=== PATIENT | female | born 1935 | race Caucasian/White ===

== ENCOUNTER 2017-07-20 16:07 | Observation (INO) | payer MEDICARE, OTHER ==
[~2017-07-20] VITALS: Ht 167.6 cm; Wt 69.8 kg
[~2017-07-20 16:07] MED LIST: DOCU100 PO; LIDO700A20 TOP; METF850 PO; PANT20 PO; Robaxin500 MG PO
[2017-07-20 17:17] LABS: BASOPHILS ABSOLUTE AUTO 0.02 K/mm3 (0.00-0.23); BASOPHILS PERCENT AUTO 0 % (0-2); EOSINOPHILS ABSOLUTE AUTO 0.12 K/mm3 (0.00-0.68); EOSINOPHILS PERCENT AUTO 2 % (0-6); Hematocrit 40.2 % (33.0-51.0); Hemoglobin 14.2 g/dL (11.5-16.0); IMMATURE GRAN ABSOLUTE AUTO 0.01 K/mm3 (0.00-0.10); IMMATURE GRAN PERCENT AUTO 0 % (0-1); LYMPHOCYTES PERCENT AUTO 43 % (21-46); MONOCYTES ABSOLUTE AUTO 0.87 K/mm3 (0.16-1.47); MONOCYTES PERCENT AUTO 12 % (4-13); Mean Corpuscular HGB 32.1 pg (26.0-34.0); Mean Corpuscular HGB Conc 35.3 g/dL (31.5-36.5); Mean Corpuscular Volume 91 fL (80-100); Mean Platelet Volume 10.5 fL (9.1-12.4); NEUTROPHILS ABSOLUTE AUTO 3.22 K/mm3 (1.96-9.15); NEUTROPHILS PERCENT AUTO 43 % (41-73); Platelet Count 191 K/mm3 (150-400); RDW Coefficient Variation 12.2 % (11.7-14.2); RDW Standard Deviation 40.7 fL (35.1-46.3); Red Blood Cell Count 4.43 M/mm3 (3.80-5.20); White Blood Cell Count 7.44 K/mm3 (4.00-11.30)
[2017-07-20 17:32] LABS: Alanine Aminotransfer (ALT/SGP 19 U/L (12-78); Albumin, Blood 3.6 g/dL (3.4-5.0); Albumin/Globulin Ratio 1.2 (0.8-1.8); Alk Phos 58 U/L (50-136); Anion Gap 8 mmol/L (6-16); Aspartate Aminotrans (AST/SGOT 22 U/L (12-37); Bilirubin, Total 0.4 mg/dL (0.1-1.0); Blood Urea Nitrogen 21 mg/dL (8-24); Bun/Creatinine Ratio 25.1 (12.0-20.0); CO2, Blood 29 mmol/L (21-32); Calcium, Blood 8.5 mg/dL (8.5-10.1); Chloride, Blood 91 mmol/L (98-108); Creatinine, Blood 0.84 mg/dL (0.40-1.00); Globulin, Blood 3.1 g/dL (2.2-4.0); Glomerular Filtration Rate >60 (60-); Glucose, Blood 96 mg/dL (70-99); Potassium, Blood 3.3 mmol/L (3.5-5.5); Sodium, Blood 128 mmol/L (136-145); Total Protein, Blood 6.7 g/dL (6.4-8.2)
[2017-07-20] MEDS ORDERED: TRAM50 PO (18:25)
[2017-07-21 04:46] LABS: BASOPHILS ABSOLUTE AUTO 0.03 K/mm3 (0.00-0.23); BASOPHILS PERCENT AUTO 1 % (0-2); EOSINOPHILS ABSOLUTE AUTO 0.14 K/mm3 (0.00-0.68); EOSINOPHILS PERCENT AUTO 2 % (0-6); Hematocrit 35.9 % (33.0-51.0); Hemoglobin 12.3 g/dL (11.5-16.0); IMMATURE GRAN ABSOLUTE AUTO 0.02 K/mm3 (0.00-0.10); IMMATURE GRAN PERCENT AUTO 0 % (0-1); LYMPHOCYTES PERCENT AUTO 40 % (21-46); MONOCYTES ABSOLUTE AUTO 0.71 K/mm3 (0.16-1.47); MONOCYTES PERCENT AUTO 11 % (4-13); Mean Corpuscular HGB 31.2 pg (26.0-34.0); Mean Corpuscular HGB Conc 34.3 g/dL (31.5-36.5); Mean Corpuscular Volume 91 fL (80-100); Mean Platelet Volume 10.4 fL (9.1-12.4); NEUTROPHILS ABSOLUTE AUTO 2.91 K/mm3 (1.96-9.15); NEUTROPHILS PERCENT AUTO 46 % (41-73); Platelet Count 213 K/mm3 (150-400); Red Blood Cell Count 3.94 M/mm3 (3.80-5.20); White Blood Cell Count 6.31 K/mm3 (4.00-11.30)
[2017-07-21 05:12] LABS: Alanine Aminotransfer (ALT/SGP 13 U/L (12-78); Albumin, Blood 3.2 g/dL (3.4-5.0); Albumin/Globulin Ratio 1.1 (0.8-1.8); Alk Phos 48 U/L (50-136); Aspartate Aminotrans (AST/SGOT 15 U/L (12-37); Bilirubin, Total 0.3 mg/dL (0.1-1.0); Blood Urea Nitrogen 16 mg/dL (8-24); Bun/Creatinine Ratio 18.8 (12.0-20.0); CO2, Blood 31 mmol/L (21-32); Calcium, Blood 8.4 mg/dL (8.5-10.1); Chloride, Blood 101 mmol/L (98-108); Creatinine, Blood 0.85 mg/dL (0.40-1.00); Globulin, Blood 2.9 g/dL (2.2-4.0); Glomerular Filtration Rate >60 (60-); Glucose, Blood 99 mg/dL (70-99); Potassium, Blood 3.6 mmol/L (3.5-5.5); Total Protein, Blood 6.1 g/dL (6.4-8.2)
[2017-07-21 05:24] LABS: Anion Gap 7 mmol/L (6-16)
[2017-07-21 05:42] LABS: Sodium, Blood 139 mmol/L (136-145)
[2017-07-22] MEDS ORDERED: HYDR1TAB94 PO (12:24)
[2018-02-22] MEDS ORDERED: HYDCHL25 PO (03:43)
[2018-02-22] MEDS ORDERED: POTCHL20ER PO (03:43)
[2018-02-22] MEDS ORDERED: ROSU5 PO (03:43)
[2018-02-23] MEDS ORDERED: LIDOCAINE1 EACH TOP (10:08)
[2018-02-23] MEDS ORDERED: GAVILAX17 GM PO (10:10)
[2018-02-23] MEDS ORDERED: ONDA4ODT MM (10:11)
== END 2017-07-22 13:05 | disposition home or self-care (01) ==
LOC: ER 16:07 → SURS 16:08 → ER 17:40 → SURS 18:54
PROVIDERS: Emergency Medicine; Internal Medicine; Surgery
PROC: BF13YZZ Fluoroscopy of Gallbladder and Bile Ducts using Other Contrast (ICD-10-PCS; principal; 2017-07-21 13:25)
PROC: 0FT44ZZ Resection of Gallbladder, Percutaneous Endoscopic Approach (ICD-10-PCS; principal; 2017-07-21 13:25)
DX: K80.12 Calculus of gallbladder with acute and chronic cholecystitis without obstruction (principal); E11.9 Type 2 diabetes mellitus without complications; I10 Essential (primary) hypertension; E87.1 Hypo-osmolality and hyponatremia; M19.90 Unspecified osteoarthritis, unspecified site; Z90.49 Acquired absence of other specified parts of digestive tract; Z79.891 Long term (current) use of opiate analgesic; Z79.899 Other long term (current) drug therapy
CPT/HCPCS: 36415; 74300; 76705; 80053; 82947; 83690; 85025; 88304; 93005; 93010; 96366; 96372; 96374; 96375; 99285; C1729; C9113; G0378; J0295; J1100; J1650; J1885; J2405; J2710; J3010; J3480; J7030; J7120

== ENCOUNTER 2017-07-29 10:44 | Emergency (ER) | payer MEDICARE, OTHER ==
[~2017-07-29] VITALS: Ht 157.5 cm; Wt 72.6 kg
[~2017-07-29 10:44] MED LIST changes: +HYDR1TAB94 PO; +TRAM50 PO
[2017-07-29 11:12] LABS: BASOPHILS ABSOLUTE AUTO 0.02 K/mm3 (0.00-0.23); BASOPHILS PERCENT AUTO 0 % (0-2); EOSINOPHILS ABSOLUTE AUTO 0.07 K/mm3 (0.00-0.68); EOSINOPHILS PERCENT AUTO 1 % (0-6); Hematocrit 35.3 % (33.0-51.0); IMMATURE GRAN ABSOLUTE AUTO 0.03 K/mm3 (0.00-0.10); IMMATURE GRAN PERCENT AUTO 0 % (0-1); LYMPHOCYTES ABSOLUTE AUTO 3.03 K/mm3 (0.84-5.20); LYMPHOCYTES PERCENT AUTO 29 % (21-46); MONOCYTES ABSOLUTE AUTO 1.13 K/mm3 (0.16-1.47); MONOCYTES PERCENT AUTO 11 % (4-13); Mean Corpuscular HGB 31.2 pg (26.0-34.0); Mean Corpuscular Volume 92 fL (80-100); Mean Platelet Volume 9.9 fL (9.1-12.4); NEUTROPHILS ABSOLUTE AUTO 6.04 K/mm3 (1.96-9.15); NEUTROPHILS PERCENT AUTO 59 % (41-73); Platelet Count 240 K/mm3 (150-400); RDW Coefficient Variation 12.2 % (11.7-14.2); RDW Standard Deviation 41.2 fL (35.1-46.3); Red Blood Cell Count 3.85 M/mm3 (3.80-5.20); White Blood Cell Count 10.32 K/mm3 (4.00-11.30)
[2017-07-29 11:28] LABS: Alanine Aminotransfer (ALT/SGP 22 U/L (12-78); Albumin, Blood 3.2 g/dL (3.4-5.0); Albumin/Globulin Ratio 0.9 (0.8-1.8); Alk Phos 61 U/L (50-136); Anion Gap 7 mmol/L (6-16); Aspartate Aminotrans (AST/SGOT 14 U/L (12-37); Bilirubin, Total 0.5 mg/dL (0.1-1.0); Blood Urea Nitrogen 22 mg/dL (8-24); Bun/Creatinine Ratio 23.2 (12.0-20.0); CO2, Blood 29 mmol/L (21-32); Calcium, Blood 8.3 mg/dL (8.5-10.1); Chloride, Blood 95 mmol/L (98-108); Creatinine, Blood 0.95 mg/dL (0.40-1.00); Globulin, Blood 3.6 g/dL (2.2-4.0); Glomerular Filtration Rate >60 (60-); Glucose, Blood 146 mg/dL (70-99); Sodium, Blood 131 mmol/L (136-145); Total Protein, Blood 6.8 g/dL (6.4-8.2)
[2017-07-29] MEDS ORDERED: Percocet 5-3251 EACH PO (13:34)
[2018-02-22] MEDS ORDERED: POTCHL20ER PO (03:43)
[2018-02-22] MEDS ORDERED: HYDCHL25 PO (03:43)
[2018-02-22] MEDS ORDERED: ROSU5 PO (03:43)
[2018-02-23] MEDS ORDERED: LIDOCAINE1 EACH TOP (10:08)
[2018-02-23] MEDS ORDERED: GAVILAX17 GM PO (10:10)
[2018-02-23] MEDS ORDERED: ONDA4ODT MM (10:11)
== END 2017-07-29 14:20 | disposition home or self-care (01) ==
LOC: ER 10:44
PROVIDERS: Physician Assistant
DX: R10.11 Right upper quadrant pain (principal); R10.13 Epigastric pain; Z79.84 Long term (current) use of oral hypoglycemic drugs; Z79.899 Other long term (current) drug therapy; Z90.49 Acquired absence of other specified parts of digestive tract
CPT/HCPCS: 36415; 73030; 74176; 80053; 83690; 85025; 96372; 96374; 96375; 99284; J1170; J2405

== ENCOUNTER 2019-03-08 16:57 | Inpatient (IN) | payer MEDICARE, OTHER ==
[~2019-03-08] VITALS: Ht 157.5 cm; Wt 74.9 kg
[~2019-03-08 16:57] MED LIST changes: +GAVILAX17 GM PO; +HYDCHL25 PO; +LIDOCAINE1 EACH TOP; +ONDA4ODT MM; +POTCHL20ER PO; +Percocet 5-3251 EACH PO; +ROSU5 PO
--- NOTE | 2019-03-12 10:00 | NUR ---
History, Chart, Medications and Allergies reviewed before start of procedure.Lungs clear T/O to Auscultation. Patient confirms NPO status and agrees with scheduled surgery. Pre-Op teaching done. Pt verbalizes understanding.
--- NOTE | 2019-03-12 15:26 | NUR ---
PT ARRIVED TO THE ROOM AT APPROXIMATELY 1450. PT QUITE DROWSY UPON ARRIVAL TO THE ROOM. SHE WAKES UP TO ANSWER QUESTIONS. SEROUS DRAINAGE NOTED FROM GUIDE SITE ON THE UPPER HIP AREA, DRESSING CHANGED; GAUZE APPLIED AND COVERED WITH COMPRESSION TAPE. WILL CONTINUE TO MONITOR DRAINAGE. VSS. WILL CONTINUE TO MONITOR.
--- NOTE | 2019-03-12 18:52 | NUR ---
BLEEDING FROM GUIDE SITE R HIP/ABD FOLLOW UP ASSESSMENT OF R HIP/ABD GUIDE SITE SHOWED THAT PT WAS STILL HAVING BLEEDING FROM THAT SITE AND THE DRESSING WAS SATURATED. DR. GASTELUM NOTIFIED OF BLEEDING. PRESSURE HELD ON WOUND SITE. BLEEDING APPEARED TO SLOW AFTER PRESSURE WAS APPLIED. DRESSING WAS CHANGED, GAUZE, ABD PAD, AND COMPRESSION TAPE APPLIED. WILL NOTIFY RN TO HOLD TORADOL AND ASPIRIN TONIGHT AND TOMORROW MORNING PER DR. GASTELUM AND TO NOTIFY DR. CASTRO.
--- NOTE | 2019-03-12 19:23 | NUR ---
SHIFT SUMMARY PAIN HAS BEEN MANAGED WITH TYLENOL AND TORADOL. SHE IS TOLERATING PO WELL. FRANCOIS RN NOTIFIED OF BLEEDING FROM GUIDE SITE (SEE PREVIOUS NOTES). VSS. REPORT GIVEN TO FRANCOIS ROY.
[2019-03-13 05:15] LABS: BASOPHILS ABSOLUTE AUTO 0.02 K/mm3 (0.00-0.23); BASOPHILS PERCENT AUTO 0 % (0-2); EOSINOPHILS PERCENT AUTO 0 % (0-6); Hematocrit 30.6 % (33.0-51.0); Hemoglobin 10.4 g/dL (11.5-16.0); IMMATURE GRAN ABSOLUTE AUTO 0.06 K/mm3 (0.00-0.10); IMMATURE GRAN PERCENT AUTO 0 % (0-1); LYMPHOCYTES ABSOLUTE AUTO 2.15 K/mm3 (0.84-5.20); LYMPHOCYTES PERCENT AUTO 16 % (21-46); MONOCYTES PERCENT AUTO 12 % (4-13); Mean Corpuscular HGB 32.3 pg (26.0-34.0); Mean Corpuscular Volume 95 fL (80-100); Mean Platelet Volume 10.6 fL (9.1-12.4); NEUTROPHILS ABSOLUTE AUTO 9.89 K/mm3 (1.96-9.15); NEUTROPHILS PERCENT AUTO 72 % (41-73); Platelet Count 180 K/mm3 (150-400); RDW Coefficient Variation 11.5 % (11.7-14.2); RDW Standard Deviation 39.8 fL (35.1-46.3); Red Blood Cell Count 3.22 M/mm3 (3.80-5.20); White Blood Cell Count 13.72 K/mm3 (4.00-11.30)
[2019-03-13 05:31] LABS: Anion Gap 8 mmol/L (6-16); Blood Urea Nitrogen 27 mg/dL (8-24); Bun/Creatinine Ratio 31.1 (12.0-20.0); CO2, Blood 25 mmol/L (21-32); Calcium, Blood 8.2 mg/dL (8.5-10.1); Chloride, Blood 103 mmol/L (98-108); Creatinine, Blood 0.87 mg/dL (0.40-1.00); Glomerular Filtration Rate >60 (60-); Glucose, Blood 259 mg/dL (70-99); Magnesium, Blood 1.5 mg/dL (1.6-2.4); Potassium, Blood 4.6 mmol/L (3.5-5.5); Sodium, Blood 136 mmol/L (136-145)
--- NOTE | 2019-03-13 07:23 | NUR ---
SUMMARY POD #1 RIGHT LYNDSEY. AUQACEL DRSG TO HIP REMAINS DRY & INTACT. CIRC WNL. PRESSURE DRSG TO ABD REMAINED DRY UNTIL THIS AM, DRSG BECAME SATURATED QUICKLY, PRESSURE DRSG WAS CHANGED, WOUND SITE CLEANED. NO BRUISING NOTED TO ABD, THIGH, OR LOWER BACK. ABD IS SLIGHTLY DISTENDED, NO CHANGE FROM ASSESSMENT. TORADOL & ASPIRIN HELD PER MD ORDER. PAIN MANAGED WITH TYLENOL AND 1 OXYCODONE. PT IS TOLERATING PO INTAKE. VOIDING WNL. 1 ASSIST TO THE BATHROOM USING FWW/GAIT BELT. SLIGHT CONFUSION NOTED. REPORTED TO BE FORGETFUL @ BASELINE. BED ALARM FOR SAFETY. REPORT GIVEN TO DAY RN, PRESSURE DRSG CHECKED AT BEDSIDE DURING REPORT. CALL LIGHT IN REACH.
--- NOTE | 2019-03-13 10:15 | NUR ---
OT BEEN TO SEE PT, PHYSICAL THERAPY HERE WORKING WITH PT AT THIS TIME.
--- NOTE | 2019-03-13 13:55 | NUR ---
THERAPY IN WITH PT. FAMILY/FRIEND ALSO IN ROOM.
--- NOTE | 2019-03-13 14:27 | NUR ---
DR CASTRO HERE TO SEE PT. FAMILY PRESENT.
--- NOTE | 2019-03-13 18:29 | NUR ---
SHIFT SUMMARY PT EATING AND DRINKING. PT WORKED WITH THERAPY TODAY (OT AND PT). PT MULT FAMILY/FRIENDS IN AND OUT OF ROOM. AQUACEL DRESSING CHANGED PER DR MATTHEW THOMAS. PT BEEN ASSISTED WITH ADL'S PRN. PT TAB ALARM IN PLACE. PT BEEN UP TO CHAIR. PT ABLE TO WALK SHORT DISTANCES (CHAIR TO DOOR). PT VOIDING.
--- NOTE | 2019-03-14 05:36 | NUR ---
NO ACUTE CHANGES OVER NIGHT. PATIENT DOES NOT UTILIZE THE CALL SYSTEM, SHE HAS THE BED AND TAB ALARMS ON TO ENSURE THAT WE ARE ABLE TO ASSIST WHEN NEEDED. SHE HAS HAD ICE ON HER RT HIP VIA THE POLAR PACK. NO BLEEDING NOTED ON DRESSING. CURRENTLY UP IN THE CHAIR WITH LEGS ELEVATED AND A TOWEL ROLL BETWEEN HER KNEES. PAIN HAS BEEN WELL CONTROLLED BY PRESCRIBED PAIN MEDICATION.
--- NOTE | 2019-03-14 11:19 | NUR ---
PT RECENTLY MOVED TO ROOM 213 PT FORGETFULL AT TIMES, FAMILY AWARE AND IN ROOM.
--- NOTE | 2019-03-14 12:20 | NUR ---
PT NOTED TO HAVE SMALL SORE ON BOTTOM AFTER USING BSC TO HAVE BM. PERMISSION GIVEN TO TAKE PHOTO. SORE IS APPROX SIZE OF PENCIL ERASER.
--- NOTE | 2019-03-14 16:57 | NUR ---
SHIFT SUMMARY PT EATING AND DRINKING, VOIDING. PT HAD BM TODAY. PT WORKED WITH THERAPY. PT BEEN UP TO CHAIR. MULT FAMILY IN/OUT OF ROOM TODAY. PT HAS TAB ALARM IN PLACE.
--- NOTE | 2019-03-15 01:50 | NUR ---
PATIENT HAS BEEN GETTING OUT OF BED WITH ASSISTANCE & FWW TO THE BSC. hER URINE OUTPUT HAS CONSISTENTLY SLOWED OVER THE SHIFT, HOWEVER HER URGE TO URINATE REMAINS. CHARGE NURSE DID A BLADER SCAN AND A STRAIGHT CATH, 900+CC OF CLEAR YELLOW URINE OUT.
--- NOTE | 2019-03-15 05:04 | NUR ---
PATIENT HAS SLEPT WELL SINCE THE STRAIGHT CATH. iCE TO RT HIP. SCDs ON. WHEN SHE WAKES, SHE IS NORMALLY TRYING TO GET OOB TO VOID. BED ALARM HAS REMAINED ON THROUGHOUT SHIFT. CALL LIGHT WITHIN REACH, NO USED.
--- NOTE | 2019-03-15 16:00 | NUR ---
PT TRANSFERRED TO [facility] VIA [facility]. REPORT WAS CALLED TO THE NURSE AT [facility]. ALL BELONGINGS AND D/C PAPERS/RX WERE SENT WITH THE PT.
== END 2019-03-15 16:01 | DRG 470 ==
LOC: SURS 03-12 09:10 → PRE IP 03-12 10:45 → SURS 03-12 14:30
PROVIDERS: ADMIT Orthopaedic Surgery
PROC: 0SR902A Replacement of Right Hip Joint with Metal on Polyethylene Synthetic Substitute, Uncemented, Open Approach (ICD-10-PCS; principal; 2019-03-12 11:00)
DX: M16.11 Unilateral primary osteoarthritis, right hip (principal); E11.9 Type 2 diabetes mellitus without complications; I05.0 Rheumatic mitral stenosis; I10 Essential (primary) hypertension; Z79.84 Long term (current) use of oral hypoglycemic drugs; Z79.899 Other long term (current) drug therapy
CPT/HCPCS: 36415; 72170; 80048; 82947; 83735; 85025; 86850; 86900; 86901; 88300; 97110; 97116; 97162; 97166; 97530; C1713; C1776; J0171; J0690; J0735; J1100; J1885; J2370; J2405; J2704; J2795; J3010; J7120

== ENCOUNTER 2020-10-22 20:37 | Emergency (ER) | payer MEDICARE, OTHER ==
[~2020-10-22] VITALS: Ht 160 cm; Wt 75.8 kg
[2020-10-22 22:00] LABS: BASOPHILS ABSOLUTE AUTO 0.05 K/mm3 (0.00-0.23); BASOPHILS PERCENT AUTO 1 % (0-2); EOSINOPHILS ABSOLUTE AUTO 0.08 K/mm3 (0.00-0.68); EOSINOPHILS PERCENT AUTO 1 % (0-6); Hematocrit 42.4 % (33.0-51.0); Hemoglobin 14.6 g/dL (11.5-16.0); IMMATURE GRAN ABSOLUTE AUTO 0.05 K/mm3 (0.00-0.10); IMMATURE GRAN PERCENT AUTO 1 % (0-1); LYMPHOCYTES ABSOLUTE AUTO 2.67 K/mm3 (0.84-5.20); LYMPHOCYTES PERCENT AUTO 24 % (21-46); MONOCYTES ABSOLUTE AUTO 0.97 K/mm3 (0.16-1.47); MONOCYTES PERCENT AUTO 9 % (4-13); Mean Corpuscular HGB 31.3 pg (26.0-34.0); Mean Corpuscular HGB Conc 34.4 g/dL (31.5-36.5); Mean Corpuscular Volume 91 fL (80-100); Mean Platelet Volume 11.6 fL (9.1-12.4); NEUTROPHILS ABSOLUTE AUTO 7.19 K/mm3 (1.96-9.15); NEUTROPHILS PERCENT AUTO 65 % (41-73); Platelet Count 267 K/mm3 (150-400); RDW Coefficient Variation 11.3 % (11.7-14.2); RDW Standard Deviation 37.4 fL (35.1-46.3); Red Blood Cell Count 4.66 M/mm3 (3.80-5.20); White Blood Cell Count 11.01 K/mm3 (4.00-11.30)
[2020-10-22 22:16] LABS: Albumin, Blood 3.6 g/dL (3.4-5.0); Albumin/Globulin Ratio 0.9 (0.8-1.8); Bilirubin, Total 0.6 mg/dL (0.1-1.0); Bun/Creatinine Ratio 24.3 (12.0-20.0); Calcium, Blood 9.1 mg/dL (8.5-10.1); Creatinine, Blood 1.03 mg/dL (0.40-1.00); Globulin, Blood 4.2 g/dL (2.2-4.0); Potassium, Blood 5.1 mmol/L (3.5-5.5); Total Protein, Blood 7.8 g/dL (6.4-8.2)
[2020-10-23 01:20] LABS: Source, Urine Clean Catch
[2020-10-23 01:22] LABS: Bilirubin, Urine Neg (Neg); Blood, Urine 1+ (Neg); Glucose Qualitative, Urine 4+ (Neg); Ketones, Urine 2+ (Neg); Leukocyte Esterase, Urine Neg (Neg); Nitrite, Urine Neg (Neg); Protein, Urine 1+ (Neg); Specific Gravity, Urine 1.015 (1.003-1.022); Urobilinogen, Urine NORM (Normal)
[2020-10-23 01:30] LABS: Color, Urine Yellow (P-Yellow)
[2020-10-23 01:34] LABS: Appearance, Urine Clear (Clear)
[2020-10-23 01:35] LABS: Bacteria Mod /hpf; Red Blood Cells, Urine Rare /hpf (0-2); Squamous Epithelial Cells Few /hpf (Few); White Blood Cells, Urine Rare /hpf (0-5)
== END 2020-10-23 05:21 | disposition home or self-care (01) ==
LOC: ER 20:37
PROVIDERS: Emergency Medicine
DX: R10.9 Unspecified abdominal pain (principal); Z79.84 Long term (current) use of oral hypoglycemic drugs; Z79.899 Other long term (current) drug therapy
CPT/HCPCS: 36415; 74176; 80053; 81001; 83690; 85025; 87086; 93005; 93010; 96374; 99285-25; J3010

== ENCOUNTER → 2021-04-01 | Outpatient (CLI) | payer MEDICARE, OTHER ==
[2021-04-01 13:06] LABS: Appearance, Urine Hazy (Clear); Bilirubin, Urine Neg (Neg); Blood, Urine Neg (Neg); Color, Urine Amber (P-Yellow); Glucose Qualitative, Urine 3+ (Neg); Ketones, Urine 2+ (Neg); Leukocyte Esterase, Urine 1+ (Neg); Nitrite, Urine Neg (Neg); Protein, Urine 1+ (Neg); Urobilinogen, Urine NORM (Normal)
[2021-04-01 13:28] LABS: Bacteria Many /hpf; Mucus Light (0-Heavy); Squamous Epithelial Cells Few /hpf (Few)
== END | disposition home or self-care (01) ==
LOC: LAB 10:30 → LAB SHORT 10:30 → LAB FUT 03-18 08:05
PROVIDERS: Nurse Practitioner
DX: F03.90 Unspecified dementia, unspecified severity, without behavioral disturbance, psychotic disturbance, mood disturbance, and anxiety (principal)
CPT/HCPCS: 81001; 87077; 87086; 87186

== ENCOUNTER 2021-04-15 18:53 | Inpatient (IN) | payer MEDICARE, OTHER ==
[~2021-04-15] VITALS: Ht 172.7 cm; Wt 67.0 kg
[~2021-04-15 18:53] MED LIST changes: -ROSU5 PO
[2021-04-15 19:30] LABS: BASOPHILS ABSOLUTE AUTO 0.03 K/mm3 (0.00-0.23); BASOPHILS PERCENT AUTO 0 % (0-2); EOSINOPHILS ABSOLUTE AUTO 0.04 K/mm3 (0.00-0.68); EOSINOPHILS PERCENT AUTO 0 % (0-6); Hematocrit 41.2 % (33.0-51.0); IMMATURE GRAN ABSOLUTE AUTO 0.08 K/mm3 (0.00-0.10); IMMATURE GRAN PERCENT AUTO 1 % (0-1); LYMPHOCYTES ABSOLUTE AUTO 2.23 K/mm3 (0.84-5.20); LYMPHOCYTES PERCENT AUTO 20 % (21-46); MONOCYTES ABSOLUTE AUTO 1.09 K/mm3 (0.16-1.47); MONOCYTES PERCENT AUTO 10 % (4-13); Mean Corpuscular HGB 31.3 pg (26.0-34.0); Mean Corpuscular Volume 92 fL (80-100); Mean Platelet Volume 10.2 fL (9.1-12.4); NEUTROPHILS ABSOLUTE AUTO 7.98 K/mm3 (1.96-9.15); NEUTROPHILS PERCENT AUTO 70 % (41-73); Platelet Count 324 K/mm3 (150-400); RDW Coefficient Variation 13.1 % (11.7-14.2); RDW Standard Deviation 44.1 fL (35.1-46.3); Red Blood Cell Count 4.48 M/mm3 (3.80-5.20); White Blood Cell Count 11.45 K/mm3 (4.00-11.30)
[2021-04-15 19:41] LABS: Albumin/Globulin Ratio 0.8 (0.8-1.8); Bilirubin, Total 0.4 mg/dL (0.1-1.0); Bun/Creatinine Ratio 29.9 (12.0-20.0); Calcium, Blood 9.2 mg/dL (8.5-10.1); Creatinine, Blood 0.94 mg/dL (0.40-1.00); Globulin, Blood 3.9 g/dL (2.2-4.0); Potassium, Blood 4.2 mmol/L (3.5-5.5); Total Protein, Blood 6.9 g/dL (6.4-8.2)
[2021-04-15 21:24] LABS: Source, Urine Clean Catch
[2021-04-15 21:28] LABS: Bilirubin, Urine Neg (Neg); Blood, Urine Neg (Neg); Glucose Qualitative, Urine Neg (Neg); Ketones, Urine 1+ (Neg); Leukocyte Esterase, Urine Neg (Neg); Nitrite, Urine Neg (Neg); Protein, Urine 1+ (Neg); Specific Gravity, Urine 1.005 (1.003-1.022); Urobilinogen, Urine NORM (Normal)
[2021-04-15 21:30] LABS: Appearance, Urine Clear (Clear); Color, Urine Yellow (P-Yellow)
[2021-04-15] MEDS ORDERED: FUROSEMIDE20 MG PO (21:35)
[2021-04-15] MEDS ORDERED: JARDIANCE10 MG PO (21:36)
[2021-04-15] MEDS ORDERED: METFORMIN HCL500 M2 PO (21:38)
[2021-04-15] MEDS ORDERED: Potassium Chlo20 ME1 PO (21:38)
[2021-04-15] MEDS ORDERED: ROSU5 PO (21:39)
[2021-04-15] MEDS ORDERED: MELO7.5 PO (21:39)
[2021-04-15] MEDS ORDERED: OMEP20ER PO (21:40)
[2021-04-15 22:54] LABS: SARS-Cov-2 (COVID-19) PCR, MMC NEGATIVE (NEGATIVE)
--- NOTE | 2021-04-15 23:53 | NUR ---
04/15/21 2353 Gaby Penn PT ON SCHEDULED ANTIBIOTIC
[2021-04-16 04:05] LABS: BASOPHILS ABSOLUTE AUTO 0.02 K/mm3 (0.00-0.23); BASOPHILS PERCENT AUTO 0 % (0-2); Hematocrit 39.5 % (33.0-51.0); Hemoglobin 13.5 g/dL (11.5-16.0); LYMPHOCYTES ABSOLUTE AUTO 0.75 K/mm3 (0.84-5.20); LYMPHOCYTES PERCENT AUTO 7 % (21-46); MONOCYTES ABSOLUTE AUTO 0.73 K/mm3 (0.16-1.47); MONOCYTES PERCENT AUTO 6 % (4-13); Mean Corpuscular HGB 31.3 pg (26.0-34.0); Mean Corpuscular HGB Conc 34.2 g/dL (31.5-36.5); Mean Corpuscular Volume 92 fL (80-100); Mean Platelet Volume 9.9 fL (9.1-12.4); Platelet Count 250 K/mm3 (150-400); RDW Coefficient Variation 12.9 % (11.7-14.2); RDW Standard Deviation 43.8 fL (35.1-46.3); Red Blood Cell Count 4.31 M/mm3 (3.80-5.20); White Blood Cell Count 11.47 K/mm3 (4.00-11.30)
[2021-04-16 04:07] LABS: EOSINOPHILS PERCENT AUTO 0 % (0-6); IMMATURE GRAN ABSOLUTE AUTO 0.04 K/mm3 (0.00-0.10); IMMATURE GRAN PERCENT AUTO 0 % (0-1); NEUTROPHILS ABSOLUTE AUTO 9.93 K/mm3 (1.96-9.15); NEUTROPHILS PERCENT AUTO 87 % (41-73)
[2021-04-16 04:31] LABS: Anion Gap 12 mmol/L (6-16); Blood Urea Nitrogen 25 mg/dL (8-24); Bun/Creatinine Ratio 32.3 (12.0-20.0); CO2, Blood 19 mmol/L (21-32); Calcium, Blood 7.9 mg/dL (8.5-10.1); Chloride, Blood 105 mmol/L (98-108); Creatinine, Blood 0.77 mg/dL (0.40-1.00); Glomerular Filtration Rate >60 (60-); Glucose, Blood 184 mg/dL (70-99); Potassium, Blood 4.2 mmol/L (3.5-5.5); Sodium, Blood 136 mmol/L (136-145)
--- NOTE | 2021-04-16 10:43 | NUR ---
CALL TO ADA. RETURNED PHONE CALL TO ADA AND GAVE AN UPDATE ON HER MOM. SHE STATED SHE WILL CALL TOMORROW FOR UPDATES.
[2021-04-16 11:50] LABS: Base Excess Venous -2.1 mmol/L; Bicarbonate Venous 21.9 mmol/L (24.0-30.0); PCO2 Venous 43.4 mmHg (38-42); pH Blood Venous 7.34 (7.34-7.37)
--- NOTE | 2021-04-16 12:34 | NUR ---
NOTICED PATIENT PULLED NG TUBE OUT AT AROUND 1130. CALLED HOSPITALIST AND WAS GIVEN ORDERS FOR SOFT WRIST RESTRAINTS WELL X-RAY FOR NG TUBE PLACEMENT. PATIENT TOLERATED NG TUBE PLACEMENT WELL. WAITING FOR X-RAY TECH TO COME CONFIRM PLACEMENT. CALL LIGHT WITHIN REACH. PATIENT CURRENTLY LAYING IN BED.
--- NOTE | 2021-04-16 13:25 | NUR ---
IMAGING CALLED STATING NG TUBE IS IN PLACE IN THE STOMACH AND OKAY TO USE.
--- NOTE | 2021-04-16 17:50 | NUR ---
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 MISTY DRAIN IN PLACE AND COMPRESSED AND COLLECTING SEROSANGINOUS FLUID. MIDLINE DRESSING IN PLACE, C/D/I, AND GREEN LIGHT FLASHING. PT IS A&O TO SELF AND VERY PLEASANT. PT CAN STATE 1 TO 3 WORD ANSWERS OCCASIONALLY BUT IS VERY CONFUSED. PT PULLED OUT NG TUBE TODAY. NG TUBE WAS REPLACED AND CONFIRMED BY XRAY IT IS IN PROPER PLACE IN STOMACH. NG IS ATTACHED TO INTERMITTENT WALL SUCTION AND IS DRAINING GREEN AND BROWN MUCUS. PT HAS A BEAN CATHETER IN PLACE AND IT IS DRAINING DARK YELLOW URINE. PT IS CURRENTY ON 1 L NC AND MAINTAINING STABLE O2 SATS. PT WAS PUT IN SOFT WRIST RESTRAINTS DUE TO PULLING NG TUBE. SHE IS CALM IN BED AND RESTING. PT HAS NOT BEEN ABLE TO VERBALIZE ANY PAIN OR SHOWN ANY PHYSICAL SIGNS OF PAIN WELL. PT'S CALL LIGHT IS WITHIN REACH. I DID TALK WITH PT'S DAUGHTER ADA, OF WHICH THE PATIENT DID REMEMBER, AND GAVE HER AN UPDATE. ADA SAID SHE WILL CALL AGAIN TOMORROW TO CHECK ON HER MOTHER.
--- NOTE | 2021-04-17 04:40 | NUR ---
SHIFT SUMMARY: VIKAS AROUSES EASILY AND RESPONDS APPROPRIATELY AT TIMES. SHE IS VERY [place]. NG TUBE REPLACED, CONNECTED TO LIS. PLACEMENT CONFIRMED BY X-RAY. IV TO L AC PATENT, FLUIDS INFUSING. SHE HAS TOLERATED A FEW SIPS THIS SHIFT, BUT NOTED TO BE A SLOW SWALLOWER. SOFT-CUFFS IN PLACE D/T PT PULLING AT LINES AND SUCCESSFULLY REMOVING NG TUBE X 2. AILIN TO MIDLINE PATENT. MISTY DRAINING LIGHT SS FLUID. BEAN PATENT, BAG HANGING ABOVE FLOOR. SHE IS LYING IN BED WITH THE CALL LIGHT IN REACH. WILL REPORT TO DAY SHIFT RN.
--- NOTE | 2021-04-17 17:04 | NUR ---
SHIFT SUMMARY POD1 FOR EX LAP WITH GRAM PATCH FROM PERFED DUODENAL ULCER. AILIN DRESSING, SCANT DRY DRAINAGE. PT PULLED OUT HER NG TUBE AT APPROX 1530. ATTEMPTED TO REPLACE NG TUBE, UNSUCCESSFUL. PER DR ORDER WE DISCONTINUED THE NG TUBE AND REMOVED RESTRAINS AT THAT TIME. PT RECIEVED ONE DOSE OF 12.5MCG FENT PER EMAR FOR PAIN. NO REPORTS OF NAUSEA/VOMITING. PLAN IS TO CONTINUE NPO WHILE HEALING. BEAN IN PLACE, DRAINING CLEAR YELLOW URINE. WILL CONTINUE TO MONITOR PT, AND REPORT TO ONCOMING RN.
[2021-04-18 04:32] LABS: BASOPHILS ABSOLUTE AUTO 0.03 K/mm3 (0.00-0.23); BASOPHILS PERCENT AUTO 0 % (0-2); EOSINOPHILS ABSOLUTE AUTO 0.14 K/mm3 (0.00-0.68); EOSINOPHILS PERCENT AUTO 1 % (0-6); Hematocrit 32.1 % (33.0-51.0); Hemoglobin 10.7 g/dL (11.5-16.0); IMMATURE GRAN ABSOLUTE AUTO 0.05 K/mm3 (0.00-0.10); IMMATURE GRAN PERCENT AUTO 1 % (0-1); LYMPHOCYTES ABSOLUTE AUTO 1.79 K/mm3 (0.84-5.20); LYMPHOCYTES PERCENT AUTO 16 % (21-46); MONOCYTES ABSOLUTE AUTO 0.77 K/mm3 (0.16-1.47); MONOCYTES PERCENT AUTO 7 % (4-13); Mean Corpuscular HGB 31.2 pg (26.0-34.0); Mean Corpuscular HGB Conc 33.3 g/dL (31.5-36.5); Mean Corpuscular Volume 94 fL (80-100); NEUTROPHILS ABSOLUTE AUTO 8.33 K/mm3 (1.96-9.15); NEUTROPHILS PERCENT AUTO 75 % (41-73); Platelet Count 270 K/mm3 (150-400); RDW Coefficient Variation 13.3 % (11.7-14.2); RDW Standard Deviation 45.7 fL (35.1-46.3); Red Blood Cell Count 3.43 M/mm3 (3.80-5.20); White Blood Cell Count 11.11 K/mm3 (4.00-11.30)
[2021-04-18 04:57] LABS: Anion Gap 7 mmol/L (6-16); Blood Urea Nitrogen 15 mg/dL (8-24); Bun/Creatinine Ratio 18.6 (12.0-20.0); CO2, Blood 22 mmol/L (21-32); Calcium, Blood 7.7 mg/dL (8.5-10.1); Chloride, Blood 110 mmol/L (98-108); Creatinine, Blood 0.81 mg/dL (0.40-1.00); Glomerular Filtration Rate >60 (60-); Glucose, Blood 104 mg/dL (70-99); Magnesium, Blood 1.3 mg/dL (1.6-2.4); Phosphorus, Blood 2.5 mg/dL (2.5-4.9); Potassium, Blood 3.1 mmol/L (3.5-5.5); Sodium, Blood 139 mmol/L (136-145)
--- NOTE | 2021-04-18 18:19 | NUR ---
SHIFT SUMMARY POD2 EX LAP WITH GRAM PATCH. CONTINUED NPO STATUS TODAY. PERIPHERAL IV STARTED LEAKING AND A POWERGLIDE WAS PLACED IN RIGHT UPPER ARM. CONTIUED IV ANTIBIOTICS TODAY AND PROTONIX. MEPLEX ON COCCYX. BEAN IN PLACE DRAINING CLEAR YELLOW URINE. MIDLINE AILIN C/D/I. R ABDOMINAL MISTY DRAIN, DRAINING SERSANGENOUS FLUID, DRESSING C/D/I. INTERACTING WELL WITH STAFF TODAY, FULL SENTENCES BEING SPOKEN. A/Ox4. PLAN FOR DC OF BEAN TOMORROW AND TO WORK WITH P/T AND O/T.
--- NOTE | 2021-04-19 01:59 | NUR ---
PT NOTED TO HAVE SEVERAL WET KLEENEX AT THE BEDSIDE. SHE DID NOT RESPOND WHEN ASKED IF HER STOMACH WAS UPSET. ZOFRAN GIVEN. WCTM.
[2021-04-19 04:26] LABS: BASOPHILS ABSOLUTE AUTO 0.03 K/mm3 (0.00-0.23); BASOPHILS PERCENT AUTO 0 % (0-2); EOSINOPHILS ABSOLUTE AUTO 0.09 K/mm3 (0.00-0.68); EOSINOPHILS PERCENT AUTO 1 % (0-6); Hematocrit 32.6 % (33.0-51.0); IMMATURE GRAN ABSOLUTE AUTO 0.07 K/mm3 (0.00-0.10); IMMATURE GRAN PERCENT AUTO 1 % (0-1); LYMPHOCYTES ABSOLUTE AUTO 1.71 K/mm3 (0.84-5.20); LYMPHOCYTES PERCENT AUTO 18 % (21-46); MONOCYTES ABSOLUTE AUTO 0.66 K/mm3 (0.16-1.47); MONOCYTES PERCENT AUTO 7 % (4-13); Mean Corpuscular HGB 31.1 pg (26.0-34.0); Mean Corpuscular HGB Conc 33.7 g/dL (31.5-36.5); Mean Corpuscular Volume 92 fL (80-100); Mean Platelet Volume 9.6 fL (9.1-12.4); NEUTROPHILS ABSOLUTE AUTO 7.09 K/mm3 (1.96-9.15); NEUTROPHILS PERCENT AUTO 74 % (41-73); Platelet Count 302 K/mm3 (150-400); RDW Coefficient Variation 13.2 % (11.7-14.2); RDW Standard Deviation 44.7 fL (35.1-46.3); Red Blood Cell Count 3.54 M/mm3 (3.80-5.20); White Blood Cell Count 9.65 K/mm3 (4.00-11.30)
--- NOTE | 2021-04-19 04:30 | NUR ---
SHIFT SUMMARY: VIKAS IS ALERT AND ORIENTED TO SELF. SHE CONTINUES TO USE FULL SENTENCES WHEN SHE IS ABLE TO HEAR THE QUESTION. SHE HAS DENIED PAIN THIS SHIFT. BEAN PATENT UNTIL REMOVAL THIS AM. MISTY DRAINING SS FLUID. AILIN PATENT TO MIDLINE. ATTENDS IN PLACE. POWERGLIDE PATENT TO KRISHNA. SHE IS LYING IN BED WITH THE CALL LIGHT IN REACH. WILL REPORT TO DAY SHIFT RN.
[2021-04-19 04:48] LABS: Albumin, Blood 1.7 g/dL (3.4-5.0); Anion Gap 7 mmol/L (6-16); Blood Urea Nitrogen 8 mg/dL (8-24); Bun/Creatinine Ratio 10.4 (12.0-20.0); CO2, Blood 26 mmol/L (21-32); Calcium, Blood 7.8 mg/dL (8.5-10.1); Chloride, Blood 106 mmol/L (98-108); Creatinine, Blood 0.77 mg/dL (0.40-1.00); Glomerular Filtration Rate >60 (60-); Glucose, Blood 124 mg/dL (70-99); Magnesium, Blood 1.8 mg/dL (1.6-2.4); Phosphorus, Blood 3.1 mg/dL (2.5-4.9); Potassium, Blood 3.2 mmol/L (3.5-5.5); Sodium, Blood 139 mmol/L (136-145)
--- NOTE | 2021-04-19 17:51 | NUR ---
PATIENT PLEASANTLY CONFUSED, ALERT TO SELF ONLY. PATIENT WORK WITH THERAPY TODAY AND IS CURRENTLY UP IN THE CHAIR, TOLERATING WELL. BEAN CATH WAS REMOVED AND HAS URINATED SINCE DC. PATIENT IS INCONTINENT OF BLADDER. PATIENT HAD A LARGE BOWEL MOVEMENT AND DID DO IT IN THE BEDSIDE COMODE. NO SIGNS OR SYMPTOMS ACUTE DISTRESS NOTED. STAFF ANTICIPATES PATIENTS NEEDS. PATIENT ALSO REMOVED HER AILIN DRAIN, REPLACED WITH MEDIPORE DRESSING AND PLACED ABDOMINAL BINDER ON TO PROTECT MISTY DRAIN PLACEMENT. WILL CONTINUE TO MONITOR.
[2021-04-20 05:07] LABS: BASOPHILS ABSOLUTE AUTO 0.05 K/mm3 (0.00-0.23); BASOPHILS PERCENT AUTO 0 % (0-2); EOSINOPHILS ABSOLUTE AUTO 0.11 K/mm3 (0.00-0.68); EOSINOPHILS PERCENT AUTO 1 % (0-6); Hematocrit 33.8 % (33.0-51.0); Hemoglobin 11.2 g/dL (11.5-16.0); IMMATURE GRAN ABSOLUTE AUTO 0.11 K/mm3 (0.00-0.10); IMMATURE GRAN PERCENT AUTO 1 % (0-1); LYMPHOCYTES ABSOLUTE AUTO 2.05 K/mm3 (0.84-5.20); LYMPHOCYTES PERCENT AUTO 18 % (21-46); MONOCYTES PERCENT AUTO 9 % (4-13); Mean Corpuscular HGB 30.9 pg (26.0-34.0); Mean Corpuscular HGB Conc 33.1 g/dL (31.5-36.5); Mean Corpuscular Volume 93 fL (80-100); Mean Platelet Volume 9.6 fL (9.1-12.4); NEUTROPHILS ABSOLUTE AUTO 8.38 K/mm3 (1.96-9.15); NEUTROPHILS PERCENT AUTO 72 % (41-73); Platelet Count 341 K/mm3 (150-400); RDW Standard Deviation 44.6 fL (35.1-46.3); Red Blood Cell Count 3.63 M/mm3 (3.80-5.20)
[2021-04-20 05:26] LABS: Anion Gap 7 mmol/L (6-16); Blood Urea Nitrogen 6 mg/dL (8-24); Bun/Creatinine Ratio 8.6 (12.0-20.0); CO2, Blood 26 mmol/L (21-32); Calcium, Blood 8.6 mg/dL (8.5-10.1); Chloride, Blood 104 mmol/L (98-108); Glomerular Filtration Rate >60 (60-); Glucose, Blood 102 mg/dL (70-99); Phosphorus, Blood 2.4 mg/dL (2.5-4.9); Potassium, Blood 3.4 mmol/L (3.5-5.5); Sodium, Blood 137 mmol/L (136-145)
--- NOTE | 2021-04-20 07:11 | NUR ---
SUMMARY PT DEMENTIA SIGNIFICANT.PT TAKING ABD BINDER APART AND SEPERATING MISTY BULB FROM TUBING.PULLING DRESSING OFF.THIS AM PT BED ALARMING AND ENTERED ROOM TO NOTE PT STANDING WITH LEANING AGAINST LOWER END SIDE OF BED WITH PAS TUBINGS TIGHT.STAFF PLACED GAIT BELT AND LIFTED PT TO STRAIGHT UPRIGHT STAND WITH WALKER AND PT BEGAN HAVING DIARRHEA.NOTED HEMMORRHOIDS.CHANGED PULL UPS AND PLACED PT IN RECLINER CHAIR WTIH TAB ALARM.REPORTED TO DAY RN AND NOTED DIARRHEA.SHE AGREES TO ASK DR IF C DIF NEEDS TO BE CHECKED.TEETH AND SOAKED AND PT SWABBED MOUTH.
--- NOTE | 2021-04-20 17:28 | NUR ---
PATIENT ALERT TO SELF ONLY. PATIENT IS VERY CONFUSED. PATIENT REDIRECTED OFTEN TODAY. UP IN CHAIR MOST OF DAY WITH CHAIR ALARM IN PLACE. PATIENT WORKED WITH PT AND OT TODAY AND TOLERATED WELL. CALLED DAUGHTER ADA AND ASKED HER TO BE HERE AT [address] BOYKIN REQUEST TO MAKE SURE SHE IS ABLE TO CARE FOR HER MOTHER. ADA STATES SHE HAS A CAREGIVER FOR A MOTHER A FEW HOURS PER DAY, WHEN THE CAREGIVER IS NOT THERE EITHER HER OR HER NEPHEW WILL BE TAKING CARE OF PATIENT. NO SIGNS OR SYMPOTMS ACUTE DISTRESS NOTED. UNABLE TO USE CALL LIGHT CORRECTLY SHE BELEIVES IT IS THE PHONE. PATIENT AMBULATES WITH WALKER AND ASSIST OF 1 STAFF. HAS BEEN CONTINENT MOST OF THE DAY TODAY. TOLERATING FULL LIQUID DIET, NO COMPLAINTS OF NAUSEA/PAIN. MISTY DRAIN WAS TAKEN OUT BY DR. BOYKIN THIS MORNING, PATIENT TOLARATED WELL. DRESSING TO MIDLINE ABLE CDI. WILL MONITOR.
[2021-04-21 05:44] LABS: BASOPHILS ABSOLUTE AUTO 0.04 K/mm3 (0.00-0.23); BASOPHILS PERCENT AUTO 0 % (0-2); EOSINOPHILS PERCENT AUTO 1 % (0-6); Hematocrit 32.5 % (33.0-51.0); Hemoglobin 10.9 g/dL (11.5-16.0); IMMATURE GRAN ABSOLUTE AUTO 0.07 K/mm3 (0.00-0.10); IMMATURE GRAN PERCENT AUTO 1 % (0-1); LYMPHOCYTES ABSOLUTE AUTO 1.85 K/mm3 (0.84-5.20); LYMPHOCYTES PERCENT AUTO 16 % (21-46); MONOCYTES ABSOLUTE AUTO 1.13 K/mm3 (0.16-1.47); MONOCYTES PERCENT AUTO 10 % (4-13); Mean Corpuscular HGB Conc 33.5 g/dL (31.5-36.5); Mean Corpuscular Volume 92 fL (80-100); Mean Platelet Volume 9.7 fL (9.1-12.4); NEUTROPHILS ABSOLUTE AUTO 8.24 K/mm3 (1.96-9.15); NEUTROPHILS PERCENT AUTO 72 % (41-73); Platelet Count 287 K/mm3 (150-400); RDW Standard Deviation 43.8 fL (35.1-46.3); Red Blood Cell Count 3.52 M/mm3 (3.80-5.20); White Blood Cell Count 11.43 K/mm3 (4.00-11.30)
[2021-04-21 06:02] LABS: Albumin, Blood 1.9 g/dL (3.4-5.0); Anion Gap 8 mmol/L (6-16); Blood Urea Nitrogen 4 mg/dL (8-24); Bun/Creatinine Ratio 5.1 (12.0-20.0); CO2, Blood 27 mmol/L (21-32); Calcium, Blood 8.6 mg/dL (8.5-10.1); Chloride, Blood 108 mmol/L (98-108); Creatinine, Blood 0.79 mg/dL (0.40-1.00); Glomerular Filtration Rate >60 (60-); Glucose, Blood 110 mg/dL (70-99); Sodium, Blood 143 mmol/L (136-145)
--- NOTE | 2021-04-21 06:42 | NUR ---
PATIENT SLEPT WELL DURING THE NIGHT. VITALS ARE STABLE AND NO SIGN OF DISTRESS. WILL CONTINUE.
[2021-04-21] MEDS ORDERED: LISI5 PO (12:36)
[2021-04-21] MEDS ORDERED: QUET25 PO (12:36)
--- NOTE | 2021-04-21 15:59 | NUR ---
DISCHARGE INSTRUCTIONS CALLED TO ADA PATIENTS DAUGHTER, SHE VERBALIZED UNDERSTANDING OF DISCHARGE INSTRUCTIONS. PATIENT AWAITING TRANSPORT TO HER HOME VIA [facility]. WILL MONITOR
--- NOTE | 2021-04-21 16:30 | NUR ---
PATIENT DISCHARGED VIA [facility], IV REMOVED
== END 2021-04-21 16:30 | disposition home health service (06) | DRG 329 ==
LOC: ER 18:53 → SURS 22:22
PROVIDERS: Emergency Medicine; Family Medicine; Internal Medicine; Nurse Practitioner Acute Care; Physician Assistant; ADMIT Surgery
PROC: 0DU907Z Supplement Duodenum with Autologous Tissue Substitute, Open Approach (ICD-10-PCS; principal; 2021-04-16)
DX: K26.1 Acute duodenal ulcer with perforation (principal); K65.0 Generalized (acute) peritonitis; D62 Acute posthemorrhagic anemia; G93.49 Other encephalopathy; E11.9 Type 2 diabetes mellitus without complications; I10 Essential (primary) hypertension; E78.5 Hyperlipidemia, unspecified; Z96.641 Presence of right artificial hip joint; F03.90 Unspecified dementia, unspecified severity, without behavioral disturbance, psychotic disturbance, mood disturbance, and anxiety; Z90.49 Acquired absence of other specified parts of digestive tract; Z98.890 Other specified postprocedural states; Z79.899 Other long term (current) drug therapy; Z79.84 Long term (current) use of oral hypoglycemic drugs; Z78.1 Physical restraint status
CPT/HCPCS: 36415; 51701; 71045; 74018; 74177; 74240; 80048; 80053; 80069; 82803; 82947; 83605; 83690; 83735; 84100; 84132; 85025; 87338; 93005; 93010; 96365-59; 96375-59; 97110; 97116; 97161; 97165; 97530; 97535; 99285-25; A9270; C9113; J0330; J1100; J2370; J2405; J2543; J2704; J3010; J3475; J3480; J7030; J7040; J7060; J7120; Q9967; U0004